=== PATIENT | female | born 1950 | race Native Hawaiian/Other Pacific Islander ===

== ENCOUNTER 2016-12-10 09:33 | Outpatient (CLI) | payer OTHER ==
[2016-12-10] MEDS ORDERED: AMIT25TA22 PO (11:56)
[2016-12-10] MEDS ORDERED: LOFIBRA67 MG OR (11:57)
[2016-12-10] MEDS ORDERED: GABA300C2 PO (11:57)
[2016-12-10] MEDS ORDERED: VENLAFAXINE75 M2 PO (11:58)
[2016-12-10] MEDS ORDERED: OMEPRAZOLE20 M1 OR (11:58)
[2016-12-10] MEDS ORDERED: ACID REDUCER150 M1 PO (11:59)
[2016-12-10] MEDS ORDERED: LISI20TA31 OR (11:59)
[2016-12-10] MEDS ORDERED: LEVO-T200 MCG PO (12:00)
[2016-12-10] MEDS ORDERED: ZOCOR80 MG OR (12:01)
[2016-12-10] MEDS ORDERED: DIPHENHYDRAM25 MG OR (12:01)
[2016-12-10] MEDS ORDERED: CETIRIZINE10 MG PO (12:02)
[2016-12-10] MEDS ORDERED: STOOL SOFTENER1 TA2 OR (12:03)
[2016-12-10] MEDS ORDERED: ASPIR-8181 MG OR (12:03)
[2016-12-10] MEDS ORDERED: VITAMIN D3400 UNI2 OR (12:04)
[2016-12-10] MEDS ORDERED: CALCIUM 604 OR (12:05)
== END 2016-12-10 09:39 | disposition short-term general hospital (02) ==
LOC: AMB 09:33
DX: R11.2 Nausea with vomiting, unspecified (principal); R42 Dizziness and giddiness
CPT/HCPCS: A0425; A0427

== ENCOUNTER 2017-06-19 12:27 | Outpatient (CLI) | payer OTHER ==
[~2017-06-19 12:27] MED LIST: ACID REDUCER150 M1 PO; AMIT25TA22 PO; ASPIR-8181 MG OR; CALCIUM 604 OR; CETIRIZINE10 MG PO; DIPHENHYDRAM25 MG OR; GABA300C2 PO; LEVO-T200 MCG PO; LISI20TA31 OR; LOFIBRA67 MG OR; OMEPRAZOLE20 M1 OR; STOOL SOFTENER1 TA2 OR; VENLAFAXINE75 M2 PO; VITAMIN D3400 UNI2 OR; ZOCOR80 MG OR
== END 2017-06-19 21:36 | disposition home or self-care (01) ==
LOC: MAMMO 12:27
DX: Z85.3 Personal history of malignant neoplasm of breast (principal); Z90.12 Acquired absence of left breast and nipple

== ENCOUNTER → 2017-08-18 19:17 | Outpatient (CLI) | payer OTHER | END | disposition home or self-care (01) | LOC: AMB 19:17 | DX: Z04.1 Encounter for examination and observation following transport accident (principal) ==

== ENCOUNTER 2018-07-02 12:56 | Outpatient (CLI) | payer OTHER | END 2018-07-02 19:50 | disposition home or self-care (01) | LOC: MAMMO 12:56 | DX: Z12.31 Encounter for screening mammogram for malignant neoplasm of breast (principal); Z85.3 Personal history of malignant neoplasm of breast ==

== ENCOUNTER 2019-04-13 14:12 | Outpatient (CLI) | payer OTHER | END 2019-04-13 23:59 | LOC: RAD 14:12 | DX: Z13.820 Encounter for screening for osteoporosis (principal); N95.8 Other specified menopausal and perimenopausal disorders ==

== ENCOUNTER 2020-09-14 12:51 | Outpatient (CLI) | payer OTHER ==
[~2020-09-14] VITALS: Ht 157.5 cm; Wt 83.5 kg
[2020-09-14 13:30] LABS: PLATELET COUNT 187 K/uL (152-353)
[2020-09-14 13:45] LABS: POTASSIUM 3.4 mmol/L (3.6-5.2)
== END 2020-09-14 19:57 | disposition home or self-care (01) ==
LOC: INF 12:51
PROVIDERS: ATTEND Family Medicine
DX: U07.1 COVID-19 (principal); I10 Essential (primary) hypertension
CPT/HCPCS: 36591; 80053; 85027; 96365; Q0239

== ENCOUNTER 2022-04-24 12:58 | Outpatient (CLI) | payer OTHER ==
[2022-04-24 14:13] LABS: POTASSIUM 3.7 mmol/L (3.6-5.2)
[2022-04-24 14:28] LABS: PLATELET COUNT 206 K/uL (152-353)
== END 2022-04-24 19:34 | disposition home or self-care (01) ==
LOC: CT 12:58
PROVIDERS: ATTEND Nurse Practitioner Family
DX: G44.85 Primary stabbing headache (principal); R42 Dizziness and giddiness
CPT/HCPCS: 80053; 85027

== ENCOUNTER 2023-03-25 11:43 | Outpatient (CLI) | payer OTHER ==
[2023-03-25 12:15] LABS: POTASSIUM 3.8 mmol/L (3.6-5.2)
== END 2023-03-25 19:07 | disposition home or self-care (01) ==
LOC: RESP 11:43
PROVIDERS: ATTEND Nurse Practitioner Family
DX: R42 Dizziness and giddiness (principal)
CPT/HCPCS: 36415; 80053; 82550; 84484; 93005